=== PATIENT | female | born 1970 | race Two or more races ===

== ENCOUNTER 2018-12-26 15:03 | Outpatient (CLI) | payer OTHER ==
[2018-12-26 15:53] LABS: BASOPHILS # (AUTO) 0.11 x10^3/uL (0-0.1); BASOPHILS % (AUTO) 1 % (0-1); EOSINOPHILS # (AUTO) 0.05 x10^3/uL (0-0.4); EOSINOPHILS % (AUTO) 1 % (1-7); LYMPHOCYTES # (AUTO) 1.97 x10^3/uL (1-3.4); LYMPHOCYTES % (AUTO) 21 % (22-44); MD NO; MEAN CORPUSCULAR HEMOGLOBIN 30.6 pg (27.0-34.8); MEAN CORPUSCULAR HGB CONC 33.4 g/dL (32.4-35.8); MEAN CORPUSCULAR VOLUME 91.6 fL (80-100); MONOCYTES % (AUTO) 8 % (2-9); NEUTROPHILS # (AUTO) 6.68 x10^3/uL (1.8-6.8); NEUTROPHILS % (AUTO) 70 % (42-75); PLATELET COUNT 263 x10^3/uL (130-400); RED BLOOD COUNT 4.68 x10^6/uL (3.82-5.3); RED CELL DISTRIBUTION WIDTH 13.4 % (9.6-15.2)
[2018-12-26] MEDS ORDERED: TURM538C PO (15:57)
[2018-12-26] MEDS ORDERED: TOPI50TA8 PO (15:57)
[2018-12-26] MEDS ORDERED: GLUC-120 PO (15:57)
[2018-12-26] MEDS ORDERED: LACT1CAP35 PO (15:57)
[2018-12-26] MEDS ORDERED: CHOL2000 PO (15:57)
[2018-12-26] MEDS ORDERED: SALI44.3 PO (15:57)
[2018-12-26 15:59] LABS: ALBUMIN 3.8 g/dL (3.4-5.0); ANION GAP 6 mmol/L (5-15); CALCIUM 8.6 mg/dL (8.5-10.1); CHLORIDE 110 mmol/L (98-107)
[2018-12-26 16:04] LABS: ALANINE AMINOTRANSFERASE 26 U/L (12-78); ALKALINE PHOSPHATASE 63 U/L (45-117); BILIRUBIN,TOTAL 0.3 mg/dL (0.2-1.0); CREATININE 0.75 mg/dL (0.55-1.02); TOTAL PROTEIN 7.4 g/dL (6.4-8.2)
== END 2018-12-26 23:59 | disposition home or self-care (01) ==
LOC: STAR 15:03
PROVIDERS: ATTEND Obstetrics & Gynecology
DX: Z01.818 Encounter for other preprocedural examination (principal); D21.9 Benign neoplasm of connective and other soft tissue, unspecified; N95.0 Postmenopausal bleeding
CPT/HCPCS: 36415; 80053; 84703; 85025

== ENCOUNTER 2018-12-30 05:52 | Day surgery (SDC) | payer OTHER ==
[~2018-12-30] VITALS: Ht 160 cm; Wt 75.0 kg
[~2018-12-30 05:52] MED LIST: CHOL2000 PO; GLUC-120 PO; LACT1CAP35 PO; SALI44.3 PO; TOPI50TA8 PO; TURM538C PO
[2018-12-30] MEDS ORDERED: LACTATED RINGERS 1,000 ML IV SCH (06:31)
[2018-12-30 06:36] VITALS: BP 131/82
[2018-12-30] MEDS ORDERED: ESTROGENS CONJUGATED VAG CRM 0.625MG/1G, 30GM ONE (06:48)
[2018-12-30] MEDS ORDERED: FLUORESCEIN SODIUM 500 MG/5 ML ONE (06:48)
[2018-12-30] MEDS ORDERED: BUPIVACAINE/PF 0.25% ONE (06:48)
[2018-12-30] MEDS ORDERED: EPINEPHRINE 1 MG/ML, 1ML ONE (06:49)
[2018-12-30] MEDS ORDERED: FENTANYL PF 250 MCG/5ML ONE (07:20)
[2018-12-30] MEDS ORDERED: MIDAZOLAM 1 MG/ML, 2ML ONE (07:20)
[2018-12-30] MEDS ORDERED: ROCURONIUM 10MG/ML,5ML ONE (07:20)
[2018-12-30] MEDS ORDERED: DEXAMETHASONE 4 MG/ML, 1ML ONE (07:20)
[2018-12-30] MEDS ORDERED: ONDANSETRON 2MG/ML, 2ML ONE ×3 (07:20→10:30)
[2018-12-30] MEDS ORDERED: SUCCINYLCHOLINE 20 MG/ML, 10ML ONE (07:20)
[2018-12-30] MEDS ORDERED: ACETAMINOPHEN 500 MG TABLET PO ONE (07:30)
[2018-12-30] MEDS ORDERED: GABAPENTIN 300 MG CAPSULE PO ONE (07:30)
[2018-12-30] MEDS ORDERED: DIAZEPAM 5 MG TABLET PO ONE (07:30)
[2018-12-30] MEDS ORDERED: SCOPOLAMINE PATCH, 1.5MG PATCH.TD72 TD ONE (07:30)
[2018-12-30] MEDS ORDERED: GLYCOPYRROLATE 0.2MG/1ML, 5ML ONE (07:33)
[2018-12-30] MEDS ORDERED: CEFAZOLIN 1,000 MG ONE (07:33)
[2018-12-30] MEDS ORDERED: KETOROLAC 30 MG/1 ML ONE (07:33)
[2018-12-30] MEDS ORDERED: PROPOFOL 10 MG/ML, 20ML ONE (07:33)
[2018-12-30] MEDS ORDERED: FENTANYL PF 100 MCG/2ML ONE ×2 (08:47→10:30)
[2018-12-30] MEDS ORDERED: HALOPERIDOL 5 MG/ML IV PRN (09:00)
[2018-12-30] MEDS ORDERED: MORPHINE SULFATE 4 MG/ML, 1ML IVPush PRN (09:00)
[2018-12-30] MEDS ORDERED: HYDROmorphone 2 MG/ML, 1ML IVPush PRN (09:00)
[2018-12-30] MEDS ORDERED: ONDANSETRON ODT 8 MG PO PRN (09:00)
[2018-12-30] MEDS ORDERED: hydrALAzine 20 MG/ML, 1ML IV PRN (09:00)
[2018-12-30] MEDS ORDERED: MEPERIDINE/PF 25MG/0.5ML IVPush PRN (09:00)
[2018-12-30] MEDS ORDERED: OXYcodone 5 MG/5 ML ORAL.SOL UDC PO PRN (09:00)
[2018-12-30] MEDS ORDERED: PROMETHAZINE 12.5 MG SUPP PR PRN (09:00)
[2018-12-30] MEDS ORDERED: ALBUTEROL SULFATE 2.5 MG/3 ML NPPB PRN (09:00)
[2018-12-30] MEDS ORDERED: LABETALOL 5MG/ML, 20ML IV PRN (09:00)
[2018-12-30] MEDS ORDERED: LORazepam 2 MG/ML, 1ML IVPush PRN (09:00)
[2018-12-30] MEDS ORDERED: EPHEDRINE 50 MG/ML, 1ML IVPush PRN (09:00)
[2018-12-30] MEDS ORDERED: PROMETHAZINE 25 MG/ML, 1ML IV PRN (09:00)
[2018-12-30] MEDS ORDERED: ONDANSETRON 2MG/ML, 2ML IV PRN (09:00)
[2018-12-30] MEDS ORDERED: MIDAZOLAM 1 MG/ML, 2ML IV PRN (09:00)
[2018-12-30] MEDS ORDERED: OXYcodone 5 MG/5 ML ORAL.SOL UDC ONE (10:30)
[2018-12-30] MEDS ORDERED: MEPERIDINE/PF 25MG/ML,1ML ONE (10:30)
[2018-12-30] MEDS: FENTANYL PF 100 MCG/2ML IV PRN ×2 (10:38→10:56)
[2018-12-30 14:17] LABS: ALBUMIN 3.2 g/dL (3.4-5.0); ANION GAP 9 mmol/L (5-15); CHLORIDE 109 mmol/L (98-107)
[2018-12-30 14:20] LABS: ALANINE AMINOTRANSFERASE 19 U/L (12-78); ALKALINE PHOSPHATASE 56 U/L (45-117); BILIRUBIN,TOTAL 0.3 mg/dL (0.2-1.0); CREATININE 0.78 mg/dL (0.55-1.02); MEAN CORPUSCULAR HEMOGLOBIN 31.1 pg (27.0-34.8); MEAN CORPUSCULAR HGB CONC 33.9 g/dL (32.4-35.8); MEAN CORPUSCULAR VOLUME 91.9 fL (80-100); MEAN PLATELET VOLUME 8.8 fL (7.4-10.4); PLATELET COUNT 222 x10^3/uL (130-400); RED BLOOD COUNT 4.54 x10^6/uL (3.82-5.3); RED CELL DISTRIBUTION WIDTH 13.4 % (9.6-15.2); TOTAL PROTEIN 6.5 g/dL (6.4-8.2)
[2018-12-30 14:41] LABS: MD YES
[2018-12-30 14:43] LABS: <PLATELET ESTIMATE> ADEQUATE; <PLT MORPHOLOGY> NORMAL PLT MORPH; <RBC MORPHOLOGY> NORMAL; BAND#(MANUAL) 0.16 x10^3/uL; BANDS%(MANUAL) 1 % (0-7); LYMPH#(MANUAL) 0.31 x10^3/uL (1-3.4); LYMPHS% (MANUAL) 2 % (22-44); SEG#(MANUAL) 15.13 x10^3/uL (1.8-6.8); SEGS% (MANUAL) 97 % (42-75)
== END 2018-12-30 16:40 | disposition home or self-care (01) ==
LOC: OUT 05:52
PROVIDERS: ATTEND Obstetrics & Gynecology
DX: D25.9 Leiomyoma of uterus, unspecified (principal); N95.0 Postmenopausal bleeding; F32.9 Major depressive disorder, single episode, unspecified; G43.909 Migraine, unspecified, not intractable, without status migrainosus
CPT/HCPCS: 36415; 58552; 80053; 81025; 85025; 86850; 86900; 88307; J0171; J0330; J0690; J1100; J1885; J2175; J2250; J2405; J2704; J3010; J3490